=== PATIENT | male | born 1970 | race Caucasian/White ===

== ENCOUNTER 2017-04-02 11:57 | Emergency (ER) | payer OTHER ==
[~2017-04-02] VITALS: Ht 172.7 cm; Wt 89.1 kg
[~2017-04-02 11:57] MED LIST: DAILY VALUE1 EACH PO; MOTRIN400 MG PO; TYLENOL EXTRA500 MG PO
[2017-04-02] MEDS ORDERED: ZOFRAN ODT4 MG PO (14:59)
[2017-04-02] MEDS ORDERED: FIORICET,ESG1 TABLET PO (14:59)
[2017-04-02 15:19] VITALS: BP 119/87
== END 2017-04-02 15:21 | disposition home or self-care (01) ==
LOC: EME 11:57
DX: G43.909 Migraine, unspecified, not intractable, without status migrainosus (principal); M43.6 Torticollis
CPT/HCPCS: 70450; 99281; 99283